=== PATIENT | female | born 1940 | race Caucasian/White ===

== ENCOUNTER 2024-11-21 01:15 | Emergency (ER) | payer OTHER ==
[~2024-11-21] VITALS: Ht 170.2 cm; Wt 83.0 kg
[2024-11-21 02:22] LABS: BASOPHILS % (AUTO) 0.4 % (0.0-2.0); EOSINOPHILS # (AUTO) 0.1 K/uL (0.0-0.7); EOSINOPHILS % (AUTO) 2.3 % (0.0-6.0); HEMATOCRIT 31 % (33-45); HEMOGLOBIN 9.6 g/dL (11.5-14.8); LYMPHOCYTES # (AUTO) 0.9 K/uL (0.8-4.8); LYMPHOCYTES % (AUTO) 14.4 % (20.0-44.0); MEAN CORPUSCULAR HEMOGLOBIN 31 PG (26.0-33.0); MEAN CORPUSCULAR HGB CONC 31 g/dl (31.0-36.0); MEAN CORPUSCULAR VOLUME 100 fL (82-100); MONOCYTES # (AUTO) 0.7 K/uL (0.1-1.30); MONOCYTES % (AUTO) 10.6 % (2.0-12.0); NEUTROPHILS # (AUTO) 4.4 K/uL (1.8-8.9); NEUTROPHILS % (AUTO) 72.3 % (43.0-81.0); PLATELET COUNT (AUTO) 101 K/uL (150-450); RED BLOOD CELL COUNT(AUTO) 3.12 MIL/uL (4.0-5.2); RED CELL DISTRIBUTION WIDTH 18.4 % (11.5-15.0); WHITE BLOOD COUNT (AUTO) 6.2 K/uL (4.3-11.0)
[2024-11-21 02:39] LABS: LACTIC ACID 1.2 mmol/L (0.4-2.0)
[2024-11-21 02:41] LABS: INR 1.3 (0.91-1.10); PROTHROMBIN TIME 13.5 SECS (9.2-11.1)
[2024-11-21 02:43] LABS: ALANINE AMINOTRANSFERASE 24 U/L (12-78); ALBUMIN 3.8 g/dL (3.4-5.0); ALKALINE PHOSPHATASE 77 U/L (46-116); ASPARTATE AMINOTRANSFERASE 25 U/L (15-37); BILIRUBIN,DIRECT 0.4 mg/dL (0.0-0.2); BILIRUBIN,TOTAL 0.9 mg/dL (0.2-1.0); CALCIUM, SERUM 8.8 mg/dL (8.5-10.1); CARBON DIOXIDE 32 mmol/L (21-32); CHLORIDE 99 mmol/L (98-107); GLUCOSE 89 mg/dL (74-106); NT-PRO BNP 12435 pg/mL (0-125); POTASSIUM 3.7 mmol/L (3.5-5.1); SODIUM SERUM 137 mmol/L (136-145); TOTAL PROTEIN, SERUM 7.2 g/dL (6.4-8.2); UREA NITROGEN, BLOOD 28 mg/dL (7-18)
[2024-11-21] MEDS ORDERED: FUROSEMIDE 40 MG/4 ML VIAL ONE (03:08)
[2024-11-21] MEDS ORDERED: ASPIRIN 325 MG TABLET ONE (03:08)
[2024-11-21] MEDS: FUROSEMIDE 40 MG/4 ML VIAL IV ONE (03:24)
[2024-11-21] MEDS: ASPIRIN 325 MG TABLET PO ONE (03:24)
[2024-11-21 07:24] VITALS: BP 100/58; TEMP 97.9; O2SAT 98
== END 2024-11-21 07:24 | disposition short-term general hospital (02) ==
LOC: ER 01:23
DX: I50.9 Heart failure, unspecified (principal); D69.6 Thrombocytopenia, unspecified; E11.22 Type 2 diabetes mellitus with diabetic chronic kidney disease; I45.10 Unspecified right bundle-branch block; D63.1 Anemia in chronic kidney disease; I48.91 Unspecified atrial fibrillation; I51.7 Cardiomegaly; J90 Pleural effusion, not elsewhere classified; N17.9 Acute kidney failure, unspecified; N18.6 End stage renal disease; R53.1 Weakness; Z99.2 Dependence on renal dialysis; Z86.79 Personal history of other diseases of the circulatory system; Z87.09 Personal history of other diseases of the respiratory system; Z87.39 Personal history of other diseases of the musculoskeletal system and connective tissue; Z60.2 Problems related to living alone
CPT/HCPCS: 99291; 96374; 93005; 71045; 85025; 80048; 87040 ×2; 83605; 80076; 36415; 84484; 85730; 83880; J1940